=== PATIENT | male | born 1965 | race Caucasian/White ===

== ENCOUNTER 2025-05-12 10:00 | Emergency (ER) | payer OTHER, SELFPAY ==
[2025-05-12 10:12] VITALS: BP 164/92
--- NOTE | 2025-05-12 11:05 | ED.GENMED ---
History of Present Illness
General
Chief Complaint: Flank Pain
Source: patient and spouse
Time Seen by Provider: 05/12/25 10:56
History of Present Illness
History of Present Illness:
The patient is a 60-year-old male presenting with left-sided abdominal pain and hematuria noticed earlier today. He reports the onset of symptoms at approximately 7:00 AM after waking and walking the dog. Initially, the pain was described as a
constant discomfort in the left side and back. The patient also experienced urgency to urinate but denies dysuria, fever, or chills. He describes a constant ache without radiation into the groin, although he has a history of a hernia that sometimes
causes discomfort in the morning. He noted a slight nausea at the time of presentation.
Past History
Past History
ED Past Medical History: HTN
ED Past Surgical History: None
Social History
Tobacco: Non-smoker
Alcohol: None
Drug: None
Phy Exam
Physical Exam
Physical Exam:
General: Awake, Alert, Oriented X3. No acute distress.
Vitals: unremarkable
Head: Atraumatic
Eyes: Pupils equal, EOMI
Throat: Airway intact, no exudates
Neck: Trachea midline
Lungs: Clear and equal b/l
Heart: Regular rate, no murmurs
Abd: Soft, Nontender, No pulsatile mass
Back: Left CVA tenderness to percussion
Neuro: Nonfocal
Skin: Warm, dry, no rash
Extremities: pulses equal b/l, no edema
Course
Orders/Labs/Results
Orders:
Orders
05/12/25 11:04
0.9% Sodium Chloride 1000 ml [Nss] 1,000 ml IV BOLUS
Ketorolac [Toradol] 15 mg IV NOW STA
05/12/25 11:05
CT Abd/pel Without Iv Or Oral Urgent
Comment:
Reason For Exam: left flank pain
05/12/25 11:44
Complete Blood Count/With Diff Urgent
Comprehensive Metabolic Panel Urgent
Lipase Urgent
Urinalysis Reflex To Culture Urgent
Date Specimen was Collected: 05/12/25
Time Specimen was Collected: 11:42
Urine Microscopic Reflex Cult Urgent
Urine Culture Urgent
IVETH Source: U
Specimen Description:
Date Specimen was Collected: 05/12/25
Time Specimen was Collected: 11:42
05/12/25 13:32
CT Abd/pelvis W Iv Cont Urgent
Comment:
Reason For Exam: eval left renal mass
Abnormal Lab Results
05/12/25
11:44
WBC 12.0 H 10^3/uL
(4.8-10.8)
Absolute Neuts (auto) 10.7 H 10^3/uL
(1.4-6.5)
Absolute Lymphs (auto) 0.7 L 10^3/uL
(1.2-3.4)
Neutrophils % 89.4 H %
(42.2-75.2)
Lymphocytes % 6.0 L %
(20.5-51.1)
BUN 25 H mg/dl
(9-20)
Glucose 134 H mg/dl
(70-99)
Albumin 5.3 H g/dl
(3.5-5.0)
Ur Occult Blood Reflex 4+ A
(Negative)
Urine RBC 50-60 A /HPF
(0-2)
Urine Bacteria (Reflex) Moderate A
(Negative)
Urine Albumin (Reflex) 1+ A
(Neg - Trace)
05/12/25 11:44
05/12/25 11:44
Vital Signs
Initial and Last Documented VS:
Initial Vital Signs
Temp Pulse Resp BP Pulse Ox
98.2 F 63 18 164/92 99
05/12/25 10:12 05/12/25 10:12 05/12/25 10:12 05/12/25 10:12 05/12/25 10:12
Last Documented Vital Signs
Temp Pulse Resp BP Pulse Ox
98.2 F 63 18 164/92 99
05/12/25 10:12 05/12/25 10:12 05/12/25 10:12 05/12/25 10:12 05/12/25 10:12
MDM/Problems Addressed
Differential Diagnosis Includes:
Kidney stone, diverticulitis, hematuria from kidney lesion, glomerulonephritis
MDM/Problems Addressed:
Patient's CAT scan shows a left renal mass with some blood product in the collecting system and ureter. Mild hydro. Case discussed with Dr. Kaiser who is on-call for urology. He will have the patient followed up in his office next week. He
requested we obtain a CT with IV contrast which will help expedite his outpatient workup. This was obtained. Patient prescribed a short course of oxycodone for pain if he needs it.
*Radiology
Radiology exam reviewed: radiology read reviewed
*Pulse Oximetry
Patient hypoxic: no
*Critical Care Note
Total Time (30-74mins, 75-104mins- exclusive of procedures): Not Applicable
Patient Management
Discussion with other providers: Service Supervisor
ED Attending Note
-
Portions of this chart may have been created with voice recognition software.� Occasional wrong word or��sound alike� substitutions may have occurred due to the inherent limitations of voice recognition software.
Discharge Plan
Departure
Patient Disposition: Home (Routine Discharge)
Date of Disposition: 05/12/25
Time of Disposition: 14:29
Patient with high blood pressure during this ER visit?: Yes
Condition: Good
Discharge Problem:
Hematuria, Left renal mass
Instructions: Blood in the urine (hematuria) in adults, BLOOD PRESSURE, Narcotic Pain Medication
Prescriptions:
New
oxycodone-acetaminophen [Percocet] 5-325 mg tablet
1 tab PO Q6HPRN PRN (Reason: pain) Qty: 12 0RF
Referrals:
Hakeem Kessler Jr., MD [Active, Urology]
UNKNOWN - PT DOES,NOT KNOW [Unknown Provider]
Activity Restrictions/Additional Instructions:
Your CT scan shows a mass on the left kidney which has caused the discomfort and blood in your urine. I have discussed the situation with Dr. Kessler who is one of our urologist. You may receive a call from [facility] office Wednesday morning but call them
if you do not hear from them by noon.
Interventions
Interventions:
*Risk Screen - Suicide Last Done: 05/12/25 10:12
*General Assessment Last Done: 05/12/25 10:12
*Neglect/Abuse Screening Last Done: 05/12/25 11:29
*ED- Fall Risk Assessment Last Done: 05/12/25 11:29
*ED COVID-19 Vaccine History Last Done: 05/12/25 11:29
LK-Pnbbux-Dfuxkwrodm Assessment Last Done: 05/12/25 11:29
ED-Male Genitourinary Assessment Last Done: 05/12/25 11:29
Discharge Date and Time
Print Language: PERSIAN
[2025-05-12 11:29] VITALS: BMI 26.1
[2025-05-12] MEDS: TORADOL 15 MG IV (11:35)
[2025-05-12] MEDS: NSS 1000 IV (11:41)
--- NOTE | 2025-05-12 11:52 | EDRN ---
Patient with c/o left sided flank/lower back pain that started this morning. Patient stated that he had hematuria. +nausea. Denies difficulty urinating.
[2025-05-12 11:55] LABS: % Basophils 0.2 % (0-2); % Eosinophils 0.8 % (0-6); % Immature Granulocytes 0.2 % (0-0.5); % Monocytes 3.4 % (1.7-9.3); % Neutrophils 89.4 % (42.2-75.2); Absolute Eosinophils 0.1 10^3/uL (0-0.7); Absolute Lymphocytes 0.7 10^3/uL (1.2-3.4); Absolute Monocytes 0.4 10^3/uL (0.1-0.6); Absolute Neutrophils 10.7 10^3/uL (1.4-6.5); Hematocrit 46.1 % (39.0-52.0); Hemoglobin 16.2 g/dL (13.0-18.0); Mean Corp Hgb Conc. 35.1 g/dL (33.0-37.0); Mean Corpuscular Hgb 30.9 pg (27.0-31.0); Mean Platelet Volume 9.5 fL (7.4-10.4); Nucleated Red Blood Cells % 0 % (-); Platelet Count 252 10^3/uL (130-400); Red Blood Cell Count 5.24 10^6/uL (4.70-6.10); Red Cell Dist. Width 12.6 % (11.5-14.5)
[2025-05-12 12:00] VITALS: BP 156/92
[2025-05-12 12:05] LABS: Urine Albumin 1+ (Neg - Trace); Urine Bilirubin Negative (Negative); Urine Character Slightly Cloudy (Clear); Urine Color Yellow; Urine Glucose Negative (Negative); Urine Ketone Negative (Negative); Urine Leukocyte Negative (Negative); Urine Nitrite Negative (Negative); Urine Occult Blood 4+ (Negative); Urine Specific Gravity 1.015 (<1.030); Urine Urobilinogen Negative (Neg - 1+)
[2025-05-12 12:25] LABS: Urine Bacteria Moderate (Negative); Urine Red Blood Cell 50-60 /HPF (0-2); Urine Squamous Cell 0-2 /LPF (Few); Urine White Cell 0-2 /HPF (0-5)
[2025-05-12 12:47] LABS: ALT (SGPT) 27 U/L (0-50); AST (SGOT) 33 U/L (17-59); Albumin 5.3 g/dl (3.5-5.0); Alkaline Phosphatase 66 U/L (38-126); Blood Urea Nitrogen 25 mg/dl (9-20); Calcium 10.1 mg/dl (8.4-10.2); Carbon Dioxide 26 mmol/L (22-30); Chloride 105 mmol/L (98-107); Estimated Creatinine Clearance 76 ml/min; Glucose 134 mg/dl (70-99); Potassium 4.3 mmol/L (3.5-5.1); Sodium 140 mmol/L (135-145); Total Bilirubin 0.8 mg/dl (0.2-1.3); Total Protein 7.9 g/dl (6.3-8.2); eGFR > 60.00
[2025-05-12 13:05] VITALS: BP 138/81
[2025-05-12 13:09] LABS: Lipase 76 U/L (23-300)
[2025-05-12 14:49] VITALS: BP 151/80
[2025-05-12] MEDS: ROXICODONE 5 MG PO (14:56)
[2025-05-12 15:00] VITALS: BP 151/80
--- NOTE | 2025-05-12 15:42 | EDRN ---
Reviewed discharge instructions with patient. Verbalized understanding. Ambulated with steady gait to the lobby.
== END 2025-05-12 15:05 | disposition home or self-care (01) ==
LOC: EMR 10:00
PROVIDERS: EMERGENCY PHYSICIAN Emergency Medicine; FAMILY PHYSICIAN Internal Medicine
DX: N28.89 Other specified disorders of kidney and ureter (principal); R31.9 Hematuria, unspecified; I10 Essential (primary) hypertension
CPT/HCPCS: 96374; 96361; 99284; 74176; 74177; 80053; 81003; 81015; 83690; 85025; 87086; Q9967

== ENCOUNTER 2025-10-17 06:36 | Day surgery (SDC) | payer OTHER, SELFPAY ==
[2025-10-17] VITALS (8 sets, daily range): BP systolic 108–152; BP diastolic 66–92; BMI 26.8
[2025-10-17] MEDS: TYLENOL 1000 MG PO (08:18)
[2025-10-17] MEDS: NORMOSOL-R/PLASMALYTE-A 1000 IV (08:18)
== END 2025-10-17 13:19 | disposition home or self-care (01) ==
LOC: SDS 06:36
PROVIDERS: ATTENDING PHYSICIAN Surgery
DX: K40.90 Unilateral inguinal hernia, without obstruction or gangrene, not specified as recurrent (principal)
CPT/HCPCS: 49650; C1781